=== PATIENT | male | born 1985 ===

== ENCOUNTER 2020-10-05 14:28 | Outpatient (REF) | payer OTHER, SELFPAY | END 2020-10-05 14:29 | disposition home or self-care (01) | LOC: HO.LAB 14:28 | PROVIDERS: Visit Provider Internal Medicine | DX: Z20.822 Contact with and (suspected) exposure to COVID-19 (principal) | CPT/HCPCS: 36415; C9803; U0003; U0005 ==

== ENCOUNTER 2020-11-30 19:14 | Emergency (ER) | payer OTHER, SELFPAY ==
[2020-11-30 19:20] VITALS: BP 145/81; PULSE 98; RESP 18; TEMP 36.9; O2SAT 98; BMI 33.3
[2020-11-30 22:04] VITALS: BP 136/75; PULSE 75; RESP 16; TEMP 36.8; O2SAT 98
--- NOTE | 2020-11-30 22:07 | ED_ITS ---
HPI - Headache General Chief Complaint: Headache Stated Complaint: headache Time Seen by Provider: 11/30/20 22:07 Source: patient Mode of arrival: ambulatory Limitations: no limitations History of Present Illness HPI Narrative: Patient with no history of headaches in the past noticed headache on the right side since morning today with gradual onset no history of trauma no nausea no vomiting since to light and noise no fever no neck pain no focal deficit patient took ibuprofen with partial relief no family history of migraine MD elicited complaint: headache Related Data Previous Rx's Medication Instructions Recorded sumatriptan succinate [Imitrex] 50 mg PO Q2H PRN #10 tab 12/01/20 Allergies Allergy/AdvReac Type Severity Reaction Status Date / Time No Known Allergies Allergy Unverified 05/18/20 16:33 Review of Systems Review of Systems: Constitutional : No Weight loss, No Fever, No Chills ENT/Mouth : No sore throat, No Rhinorrhea Eyes: No Eye Pain, No Swelling Cardiovascular : No Chest Pain, no palpitations Respiratory : No Cough, No Sputum, no shortness of breath Gastrointestinal : no Nausea, No Vomiting, No Diarrhea, No abdominal Pain, no black stools Genitourinary : No Dysuria, No Urinary Frequency Musculoskeletal : No joint pain, No Myalgias, No Joint Swelling Skin : No Skin Lesions, No rash Neuro : No Weakness, No Numbness, No Dizziness, ++ Headache Psych : No Anxiety/Panic, No Depression Heme/Lymph: No Bruising, No Lymphadenopathy Endocrine : No Polyuria, No Polydipsia All other systems reviewed and are negative PMFSH Past Medical History Medical History No significant past medical history Social History Social History Alcohol intake: never Smoking Status: Never smoker Use of substances other than those prescribed or required for medical reasons: No Advance Directives: No Advance Directives Information Provided: Yes Physical Exam Vital Signs: Vital Signs: Last Vital Signs Temp 98.3 F 11/30/20 22:04 Pulse 75 11/30/20 22:04 Resp 16 11/30/20 22:04 BP 136/75 11/30/20 22:04 Pulse Ox 98 11/30/20 22:04 Body Mass Index 33.3 Appearance: Alert. Oriented X3. No acute distress. Eyes: Pupils equal, round and reactive to light. Light sensitive+ ENT: Pharynx normal. No temporal artery tenderness no scalp tenderness no mastoid tenderness tympanic membrane normal and intact Neck: Normal inspection. Neck supple. No meningeal signs CVS: Normal heart rate and rhythm. Pulses normal. Respiratory: No respiratory distress. Breath sounds normal. Abdomen: Soft and nontender. Bowel sounds are present, no mass palpable, no CVA tenderness Skin: Skin warm and dry. Normal skin color. Normal skin turgor. Extremities: No lower extremity edema. Neuro: Oriented X 3. No motor deficit. No sensory deficit. MDM - Headache MDM Narrative Medical decision making narrative: Patient with headaches likely migraine responded to Imitrex feeling much better at this time will discharge patient home on p.o. or Imitrex Differential Diagnosis Differential diagnosis: Likely migraine Discharge Plan Discharge Clinical Impression: Migraine Qualifiers: Migraine type: without aura Status migrainosus presence: without status migrain osus Intractability: not intractable Qualified Code(s): G43.009 - Migraine without aura, not intractable, without status migrainosus Patient Disposition: Home, Self-Care Instructions: Migraine Headache (ED) Additional Instructions: Rest at home take medication as advised for migraine. Follow with PCP if not better Prescriptions: New sumatriptan succinate [Imitrex] 50 mg tablet 50 mg PO Q2H PRN (Reason: migraine headache) Qty: 10 RF: 0 Stand Alone Forms: Work/School Release Interventions: ED Discharge Assessment Last Done: 12/01/20 00:49 Discharge Date/Time: 12/01/20 00:52
== END 2020-12-01 00:52 | disposition home or self-care (01) ==
PROVIDERS: Emergency Provider Internal Medicine; PCP Family Medicine
DX: G43.009 Migraine without aura, not intractable, without status migrainosus (principal)
CPT/HCPCS: 96372; 99284; J3030

== ENCOUNTER 2023-04-11 22:25 | Emergency (ER) | payer OTHER, SELFPAY ==
--- NOTE | ~2023-04-11 | CT_ITS ---
EXAMINATION: CT ABDOMEN AND PELVIS WITHOUT CONTRAST CLINICAL INFORMATION: Flank pain. History of stones. COMPARISON: CT abdomen/pelvis 09/08/2013. TECHNIQUE: Multidetector volumetric imaging was performed from the superior aspect of the liver through the pubic symphysis. Sagittal and coronal reformatted images were obtained on the technologist's workstation. This CT examination was performed using dose optimization techniques as appropriate, variously including the following: *Automated exposure control *Adjustment of mA and/or kV according to patient size (this includes techniques or standardized protocols for targeted exams where dose is matched to indication/reason for exam; i.e. extremities or head) *Use of iterative reconstruction technique DLP: 445 mGy-cm FINDINGS: The lack of intravenous contrast limits evaluation of the solid visceral organs including the liver, spleen, pancreas, and kidneys. LUNG BASES: Calcified granuloma in the right lower lung. No focal consolidation or pleural effusion. LIVER, GALLBLADDER, AND BILIARY TREE: The liver is enlarged and demonstrates decreased attenuation of the parenchyma suggesting hepatic steatosis. Otherwise, liver is normal in shape without discrete focal lesion in this limited noncontrast examination. The gallbladder is unremarkable with no evidence of radiopaque gallstones, gallbladder wall thickening, or obvious pericholecystic inflammatory changes. PANCREAS: Limited noncontrast examination. No significant peripancreatic free fluid or fat stranding. No main ductal dilatation. SPLEEN: Unchanged periphery calcified 2 cm cyst in the anterior spleen. ADRENAL GLANDS: Unremarkable. KIDNEYS AND URETERS: Moderate left-sided hydroureteronephrosis with a 7 mm calculus in the left ureter at the level of L3-L4. Additional 7 mm nonobstructive calculus in the mid to lower left kidney located at 5.5 cm from the skin surface of the posterior axillary line. Mild asymmetric fat stranding/free fluid around the left kidney and left ureter. Normal right kidney. BLADDER: Suspect mild diffuse urinary bladder wall thickening. No significant perivesical fat stranding. GASTROINTESTINAL TRACT: The stomach and the small bowel are nondilated. Normal appendix. Colonic diverticulosis. No significant pericolonic fat stranding/free fluid. No evidence of bowel obstruction. ABDOMINAL WALL: No significant hernia is appreciated. LYMPH NODES: Mild fatty haziness of the upper mesentery with scattered prominent mesenteric lymph nodes are not significantly changed since 2013. VASCULAR: Normal caliber abdominal aorta. PELVIC VISCERA: Unremarkable. OSSEOUS STRUCTURES: No acute or aggressive appearing osseous abnormalities. Degenerative changes of the spine. CT/CT abdomen pelvis wo IV con IMPRESSION: 1. Moderate left-sided hydroureteronephrosis with a 7 mm calculus in the left ureter at the level of L3-L4. Asymmetry left-sided perirenal fat stranding and periureteric fat stranding are likely reactive changes in the setting of the obstructing calculus, correlation with superimposed infection should be clinically obtained. 2. Additional 7 mm nonobstructive calculus in the left kidney. 3. Suspect mild urinary bladder wall thickening, correlation with urinalysis as clinically indicated. 4. Diverticulosis without findings to suspect acute diverticulitis. 5. Hepatomegaly and hepatic steatosis. 6. Chronic periphery calcified splenic pseudocyst.
[2023-04-11 22:33] VITALS: BP 147/83; PULSE 53; RESP 20; TEMP 36.7; O2SAT 97
[2023-04-11 23:01] LABS: Hematocrit 42.7 % (42.0-52.0); Hemoglobin 13.8 g/dl (14.0-18.0); Mean Corpuscular HGB Conc 32.3 g/dl (31.0-36.0); Mean Corpuscular Hemoglobin 27.9 pg (27.0-33.0); Mean Corpuscular Volume 86.3 fL (80.0-98.0); Mean Platelet Volume 10.5 fL (9.4-12.4); Platelet Count 268 X10*3/uL (160-400); Red Blood Count 4.95 X10*6/uL (4.60-5.80); Red Cell Distribution Width 14.5 % (11.0-16.0); White Blood Count 13.2 X10*3/uL (4.8-10.8)
[2023-04-11 23:22] LABS: Alanine Aminotransferase 12 U/L (0-40); Albumin Level 4.6 g/dL (3.5-5.0); Alkaline Phosphatase 64 U/L (39-117); Anion Gap 15 (12-20); Aspartate Amino Transferase 18 U/L (5-37); Bilirubin Total 0.7 mg/dL (0.0-1.0); Blood Urea Nitrogen 9 mg/dL (9-16); Calcium 10.4 mg/dL (8.4-10.2); Carbon Dioxide 26 mmol/L (22-29); Chloride 106 mmol/L (96-108); Creatinine Clr Calc Pharmacy 60.4; Estimated Glomerular Filt Rate 48; Glucose Random 102 mg/dL (60-115); Lipase 40 U/L (8-78); Potassium 3.9 mmol/L (3.3-5.1); Sodium 143 mmol/L (135-145); Total Protein 7.9 g/dL (6.5-8.0)
--- NOTE | 2023-04-11 23:26 | ED.GENADULT ---
HPI - General Adult General Chief complaint: Abdominal Pain Stated complaint: kidney stone Time Seen by Provider: 04/11/23 23:25 Source: patient Mode of arrival: ambulatory Limitations: no limitations History of Present Illness HPI narrative: Patient is a 38 year old assigned male at with a history of kidney stones presenting to the emergency department today with left flank pain. Patient states that he has left flank pain that is radiating into his back. Patient denies any dizziness, lightheadedness, nausea, vomiting, fever, chills, blurry vision, double vision, loss of vision, chest pain, difficulty breathing, shortness of breath, night sweats, pain with urination, increased urinary frequency, increased urinary urgency, blood in his urine or stool, syncope or a near syncopal episode, recent trauma or falls, bowel incontinence, bladder incontinence, bowel retention, bladder retention, or any other complaints at this time. Onset (ago): hour(s) Location: left (flank) Radiation: back Severity: mild Severity scale (1-10): 5 Quality: aching and constant Pain Consistency: constant Relieving factors: none Exacerbating factors: none Associated symptoms: denies other symptoms Treatments prior to arrival: none Related Data Previous Rx's Medication Instructions Recorded sumatriptan succinate 50 mg tablet 50 mg PO Q2H PRN migraine headache 12/01/20 (Imitrex) #10 tabs levofloxacin 500 mg tablet 500 mg PO DAILY 7 days #7 tabs 04/12/23 naproxen 500 mg tablet 500 mg PO BID 7 days #14 tabs 04/12/23 prednisone 20 mg tablet 20 mg PO DAILY 7 days #7 tabs 04/12/23 tamsulosin 0.4 mg capsule 0.4 mg PO DAILY #7 caps 04/12/23 Allergies Allergy/AdvReac Type Severity Reaction Status Date / Time No Known Allergies Allergy Unverified 05/18/20 16:33 Review of Systems Constitutional: Constitutional: Reports no additional constitutional complaints, Denies chills, Denies fever(s) and Denies night sweats Eyes: Eyes: Reports no additional eye complaints, Denies blurry vision, Denies change in vision, Denies diplopia, Denies eye discharge, Denies loss of vision and Denies eye pain ENT: Denies dizziness Cardiovascular: Cardiovascular: Reports no additional cardiovascular complaints, Denies chest pain, Denies lightheadedness, Denies Loss of Consciousness and Denies dyspnea Respiratory: Respiratory: Reports no additional respiratory complaints and Denies dyspnea Gastrointestinal: Gastrointestinal: Reports no additional gastrointestinal complaints, Denies abdominal pain, Denies melena, Denies hematochezia, Denies change in bowel habits and Denies change in stool character Genitourinary: Genitourinary: Reports no additional male genitourinary complaints, Denies hematuria, Denies oliguria, Denies difficulty urinating, Denies dysuria, Reports flank pain (left), Denies urinary frequency, Denies urinary hesitancy, Denies urinary incontinence and Denies urinary urgency Musculoskeletal: Musculoskeletal: Reports no additional musculoskeletal complaints, Denies numbness and Denies tingling Neurologic: Denies dizziness, Denies loss of vision, Denies numbness and Denies tingling Psychiatric: Psychiatric: Reports no additional psychiatric complaints Endocrine: Endocrine: Reports no additional endocrine complaints Hematologic/Lymphatic: Hematologic/Lymphatic: Reports no additional hematologic/lymphatic complaints Allergic/Immunologic: Allergic/Immunologic: Reports no additional allergic/immunologic complaints PMFSH Past Medical History Attestation statement: The following information was validated with the patient. Source: old records reviewed and nursing notes reviewed Medical History No significant past medical history Social History Social History Alcohol intake: never Advance Directives: No Advance Directives Information Provided: Yes Physical Exam ED Vital Signs: Vital Signs - 24 hr 04/11/23 22:33 04/12/23 01:14 Temperature 98.0 F 98.9 F Pulse Rate 53 57 Respiratory Rate 20 15 Blood Pressure 147/83 H 124/66 Pulse Oximetry 97 98 Oxygen Delivery Method Room Air Room Air BMI result Body Mass Index 30.0 Const General: cooperative, no acute distress, alert and awake Nutritional Appearance: well nourished Orientation/consciousness: patient oriented x3 Limitations: no limitations HENMT Head: Yes normal to inspection and Yes atraumatic Ears: hearing grossly normal bilaterally and external ears normal General nose exam: Normal external nose present, no nasal discharge noted and no epistaxis Face and sinus: Yes normal facial exam, No abrasion and No laceration Mouth: Normal oral and palatal mucosa present, no drooling and no muffled voice Eyes General: appearance normal, both eyes and all related structures Periorbital: periorbital findings normal Eyelids: Yes eyelids normal Conjunctivae: conjunctivae normal Pupils: Equal, round and reactive pupils present EOM: EOMs intact bilaterally Neck Neck: Yes normal visual inspection, Yes full ROM and Yes no lymphadenopathy Chest Chest palpation & inspection: normal inspection of the chest Resp Effort & Inspection: normal respiratory effort and able to speak in complete sentences Auscultation: clear to auscultation bilaterally Cardio Rate: regular rate Rhythm: regular rhythm GI Inspection: Yes normal to inspection Palpation (GI): Soft to palpation, not firm, nontender and no guarding Neuro General: patient oriented x3 and moves all extremities Cranial nerves: Yes Equal, round and reactive pupils present Cognition (Neuro): normal cognition Motor exam (neuro): 5/5 motor strength present throughout Sensory Exam: Normal double simultaneous stimulation for sensation Coordination: [id number] test normal Extrem General: Yes normal to inspection, Yes full ROM and Yes capillary refill normal Psych Appearance: grossly normal Mental Status: mental status grossly normal Affect: normal affect Attitude: cooperative Thought process: Normal thought process present Thought content: Normal thought content present Insight: Good insight present (Psych) Medications Administered Generic Name Dose Route Start Last Admin Trade Name Freq PRN Reason Stop Dose Admin Sodium Chloride 1,000 mls @ 999 mls/hr 04/12/23 01:15 04/12/23 01:15 Ns IV 04/12/23 03:15 999 mls/hr .Q1H1M HERRERA Administration Discontinued Medications Generic Name Dose Route Start Last Admin Trade Name Freq PRN Reason Stop Dose Admin Sodium Chloride 1,000 mls @ 999 mls/hr 04/11/23 23:30 04/12/23 01:16 Ns IV 04/12/23 00:30 Infused .Q1H1M HERRERA Infusion Ketorolac Tromethamine 15 mg 04/11/23 23:27 04/11/23 23:48 Ketorolac Tromethamine 15 Mg/Ml Vial IVPUSH 04/11/23 23:28 15 mg ONCE ONE Administration Levofloxacin 500 mg 04/12/23 01:07 04/12/23 01:17 Levofloxacin 500 Mg Tablet PO 04/12/23 01:08 500 mg ONCE ONE Administration Prednisone 20 mg 04/12/23 01:07 04/12/23 01:18 Prednisone 20 Mg Tablet PO 04/12/23 01:08 20 mg ONCE ONE Administration Tamsulosin HCl 0.4 mg 04/12/23 01:07 04/12/23 01:18 Tamsulosin Hcl 0.4 Mg Capsule PO 04/12/23 01:08 0.4 mg ONCE ONE Administration Medical Decision Making Medical Decision Making [facility] Narrative: Patient is a 38 year old assigned male at with a history of kidney stones presenting to the emergency department today with left flank pain. Patient's physical exam was unremarkable. Patient's blood work showed a WBC count of 13.2 and CR of 1.63. Patient's urine showed no acute process. Patient's CT abd/pelvis showed moderate left-sided hydroureteronpehrosis with a 7mm calculus in the left ureter at the level of L3-L4, asymmetry left-sided perirenal fat stranding and periureteric fat stranding are likely reactive changes in the setting of the obstructing calculus, and suspected urinary bladder wall thickening correlating with possible cystitis. I spoke with the urologist harm reduction worker who recommended the patient get 3 total liters of IV fluids and be discharged home with levaquin, prednisone, and flomax then follow up out patient. I explained my physical exam findings as well as all test results to the patient. I answered all questions asked by the patient. I stressed the importance of the patient taking his medication as prescribed. I stressed the importance of the patient following up with his primary care provider and a urologist. I stressed the importance of the patient returning to the emergency department immediately if his symptoms were to worsen or if he were to develop any dizziness, shortness of breath, difficulty breathing, chest pain, blurry vision, loss of vision, nausea, vomiting, abdominal pain, fever, chills, back pain, or any other complaints. Patient verbalized agreement and understanding with this treatment plan and discharge. Differential Diagnosis Differential Diagnoses: The differential diagnosis associated with the presentation includes Kidney stone UTI Pyelonephritis Admission/Observation Consideration of admission/observation: Escalation of care including admission/observation considered Patient would have been admitted to the hospital had his work up had any findings where hospital admission was appropriate, his clinical presentation warranted hospital admission, or the specialist recommended admission. Consult Healthcare Provider Management of the patient was discussed with: Entrepreneurial Finance Professor (spoke with the urologist harm reduction worker as noted in the MDM portion of this note.) Lab Data [facility] Lab Attestation statement: I reviewed the patient's lab results. My interpretation of these results are in the [facility] portion of this note. 04/11/23 22:56 04/11/23 22:56 Labs: Lab Results 04/11/23 04/11/23 04/12/23 Range/Units 22:56 22:56 00:50 WBC 13.2 H (4.8-10.8) X10*3/uL RBC 4.95 (4.60-5.80) X10*6/uL Hgb 13.8 L (14.0-18.0) g/dl Hct 42.7 (42.0-52.0) % MCV 86.3 (80.0-98.0) fL MCH 27.9 (27.0-33.0) pg MCHC 32.3 (31.0-36.0) g/dl RDW 14.5 (11.0-16.0) % Plt Count 268 (160-400) X10*3/uL MPV 10.5 (9.4-12.4) fL Absolute Nucleated RBC 0.000 (0.0-0.012) X10*3/uL Nucleated RBC % (auto) 0.0 (0.0-0.2) /100WBC Sodium 143 (135-145) mmol/L Potassium 3.9 (3.3-5.1) mmol/L Chloride 106 (96-108) mmol/L Carbon Dioxide 26 (22-29) mmol/L Anion Gap 15 (12-20) BUN 9 (9-16) mg/dL Creatinine 1.63 H (0.5-1.4) mg/dL Estim Creat Clear Calc 60.4 Estimated GFR 48 Random Glucose 102 (60-115) mg/dL Calcium 10.4 H (8.4-10.2) mg/dL Total Bilirubin 0.7 (0.0-1.0) mg/dL AST 18 (5-37) U/L ALT 12 (0-40) U/L Alkaline Phosphatase 64 (39-117) U/L Total Protein 7.9 (6.5-8.0) g/dL Albumin 4.6 (3.5-5.0) g/dL Lipase 40 (8-78) U/L Urine Color Yellow Urine Appearance Clear Urine pH 6.5 (5.0-9.0) Ur Specific [place] 1.020 (1.005-1.025) Urine Protein 30 (1+) H (Neg-Trace) mg/dL Urine Glucose (UA) Negative (Negative) mg/dL Urine Ketones Trace (Negative) mg/dL Urine Blood Large (3+) H (Negative) Urine Nitrite Negative (Negative) Ur Leukocyte Esterase Small (1+) H (Negative) Urine RBC >20 H (0-2) /HPF Urine WBC 6-10 H (0-5) /HPF Ur Squamous Epith Cells 0-2 (0-2) /HPF Urine Bacteria None Seen (None Seen) Hyaline Casts 0-2 (0-2) /LPF Independent Interpretation I performed an independent interpretation of an: CT Scan Interpretation: My interpretation is in agreement with the radiologist's impression of this imaging study. EXAMINATION: CT ABDOMEN AND PELVIS WITHOUT CONTRAST? CLINICAL INFORMATION: Flank pain. History of stones.? COMPARISON: CT abdomen/pelvis 09/08/2013. TECHNIQUE: Multidetector volumetric imaging was performed from the superior aspect of the liver through the pubic symphysis. Sagittal and coronal reformatted images were obtained on the technologist's workstation.? This CT examination was performed using dose optimization techniques as appropriate, variously including the following: *Automated exposure control *Adjustment of mA and/or kV according to patient size (this includes techniques or standardized protocols for targeted exams where dose is matched to indication/reason for exam; i.e. extremities or head) *Use of iterative reconstruction technique DLP: 445 mGy-cm FINDINGS: The lack of intravenous contrast limits evaluation of the solid visceral organs including the liver, spleen, pancreas, and kidneys. LUNG BASES: Calcified granuloma in the right lower lung. No focal consolidation or pleural effusion.? LIVER, GALLBLADDER, AND BILIARY TREE: The liver is enlarged and demonstrates decreased attenuation of the parenchyma suggesting hepatic steatosis. Otherwise, liver is normal in shape without discrete focal lesion in this limited noncontrast examination. The gallbladder is unremarkable with no evidence of radiopaque gallstones, gallbladder wall thickening, or obvious pericholecystic inflammatory changes.? PANCREAS: Limited noncontrast examination. No significant peripancreatic free fluid or fat stranding. No main ductal dilatation. SPLEEN: Unchanged periphery calcified 2 cm cyst in the anterior spleen. ? ADRENAL GLANDS: Unremarkable.? KIDNEYS AND URETERS: Moderate left-sided hydroureteronephrosis with a 7 mm calculus in the left ureter at the level of L3-L4. Additional 7 mm nonobstructive calculus in the mid to lower left kidney located at 5.5 cm from the skin surface of the posterior axillary line. Mild asymmetric fat stranding/free fluid around the left kidney and left ureter. Normal right kidney.? BLADDER: Suspect mild diffuse urinary bladder wall thickening. No significant perivesical fat stranding.? GASTROINTESTINAL TRACT: The stomach and the small bowel are nondilated. Normal appendix. Colonic diverticulosis. No significant pericolonic fat stranding/free fluid. No evidence of bowel obstruction.? ABDOMINAL WALL: No significant hernia is appreciated.? LYMPH NODES: Mild fatty haziness of the upper mesentery with scattered prominent mesenteric lymph nodes are not significantly changed since 2014. VASCULAR: Normal caliber abdominal aorta. PELVIC VISCERA: Unremarkable.? OSSEOUS STRUCTURES: No acute or aggressive appearing osseous abnormalities. Degenerative changes of the spine.? CT/CT abdomen pelvis wo IV con IMPRESSION: 1.? Moderate left-sided hydroureteronephrosis with a 7 mm calculus in the left ureter at the level of L3-L4. Asymmetry left-sided perirenal fat stranding and periureteric fat stranding are likely reactive changes in the setting of the obstructing calculus, correlation with superimposed infection should be clinically obtained. 2.? Additional 7 mm nonobstructive calculus in the left kidney. 3.? Suspect mild urinary bladder wall thickening, correlation with urinalysis as clinically indicated. 4.? Diverticulosis without findings to suspect acute diverticulitis. 5.? Hepatomegaly and hepatic steatosis. 6.? Chronic periphery calcified splenic pseudocyst Dictated By: Lakshmi Virk Signed By: Electronically signed by Lakshmi Virk 04/12/23 0028 Radiology Impression Discussion of test interpretation with radiology: I have reviewed the radiologist's reading. Prescription Management I considered prescription management with: Pain Medication (patient prescribed pain medication) and Antibiotic (patient prescribed an antibiotic) Critical Care Time Critical Care Time Critical Care Time: Yes Total Critical Care Time: 40 Attestation: I spent 40 minutes of Critical Care Time with this patient. This does not include time spent on separately reported billable procedures. Discharge Plan Discharge Clinical Impression: Kidney stone Patient Disposition: Home, Self-Care Instructions: Kidney Stones (ED) Additional Instructions: Follow up with your primary care provider and a urologist. Return to the emergency department immediately if your symptoms worsen or if you develop any dizziness, shortness of breath, difficulty breathing, chest pain, blurry vision, loss of vision, nausea, vomiting, abdominal pain, fever, chills, back pain, or any other complaints. Prescriptions: New levofloxacin 500 mg tablet 500 mg PO DAILY 7 Days Qty: 7 0RF tamsulosin 0.4 mg capsule 0.4 mg PO DAILY Qty: 7 0RF prednisone 20 mg tablet 20 mg PO DAILY 7 Days Qty: 7 0RF naproxen 500 mg tablet 500 mg PO BID 7 Days Qty: 14 0RF No Action sumatriptan succinate [Imitrex] 50 mg tablet 50 mg PO Q2H PRN (Reason: migraine headache) Qty: 10 0RF Rx Instructions: do not exceed 2 doses per 24 hrs Referrals: [facility] [Provider Group] (Call to establish and follow up with a urologist. ) Geraldine Stauffer MD [Primary Care Provider] - Print Language: Welsh
[2023-04-11] MEDS: 0.9 % Sodium Chloride 1,000 ML 999 ML IV (23:46)
[2023-04-11] MEDS: Ketorolac Tromethamine 15 MG/ML VIAL IVPUSH (23:48)
[2023-04-12 00:58] LABS: Appearance Urine Clear; Color Urine Yellow; Glucose Urine UA Negative (Negative); Leukocyte Esterase Urine Small (1+) (Negative); Nitrite Urine Negative (Negative); PH 6.5 (5.0-9.0); UMIC TRIGGER UACC YES; Urine Blood Large (3+) (Negative); Urine Ketones Trace mg/dL (Negative); Urine Protein 30 (1+) mg/dL (Neg-Trace)
[2023-04-12 01:03] LABS: Bacteria Urine None Seen (None Seen); Hyaline Casts Urine 0-2 /LPF (0-2); RBC Urine >20 /HPF (0-2); Squamous Epithelial Cell Urine 0-2 /HPF (0-2); UACC Culture Trigger YES
[2023-04-12 01:14] VITALS: BP 124/66; PULSE 57; RESP 15; TEMP 37.2; O2SAT 98
[2023-04-12] MEDS: 0.9 % Sodium Chloride 1,000 ML 999 ML IV (01:15)
[2023-04-12] MEDS: levoFLOXacin 500 MG TABLET PO (01:17)
[2023-04-12] MEDS: Tamsulosin HCL 0.4 MG CAPSULE PO (01:18)
[2023-04-12] MEDS: predniSONE 20 MG TABLET PO (01:18)
== END 2023-04-12 03:20 | disposition home or self-care (01) ==
PROVIDERS: Emergency Provider Emergency Medicine; PCP Internal Medicine
DX: N20.0 Calculus of kidney (principal); R10.9 Unspecified abdominal pain; R16.0 Hepatomegaly, not elsewhere classified; K76.0 Fatty (change of) liver, not elsewhere classified; Z87.442 Personal history of urinary calculi
CPT/HCPCS: 36415; 74176; 80053; 81001; 83690; 85027; 87086; 96361; 96374; 99284; J1885